=== PATIENT | male | born 1950 | race Two or more races ===

== ENCOUNTER 2016-09-22 05:22 | Emergency (ER) | payer MEDICAID ==
[~2016-09-22] VITALS: Ht 175.3 cm; Wt 81.6 kg
[2016-09-22 05:36] VITALS: BP 126/71
== END 2016-09-22 05:50 | disposition home or self-care (01) ==
LOC: ER 05:26
DX: T20.45XA Corrosion of unspecified degree of scalp [any part], initial encounter (principal); Y92.89 Other specified places as the place of occurrence of the external cause; Y93.89 Activity, other specified; Y99.8 Other external cause status
CPT/HCPCS: A4606; Z7502; Z7610

== ENCOUNTER 2018-01-15 18:59 | Emergency (ER) | payer MEDICARE, MEDICAID ==
[~2018-01-15] VITALS: Ht 165.1 cm; Wt 77.1 kg
--- NOTE | 2018-01-15 18:59 | NUR ---
BB FAMILY; LEFT BACK/ LEFT LEG PAIN X 3 WEEKS. VSS NAD A/OX4 SKIN WARM AND WNL. WILL CONTINUE TO MONITOR FOR ANY CHANGES
--- NOTE | 2018-01-15 19:05 | NUR ---
PA AT BEDSIDE FOR EVAL
--- NOTE | 2018-01-15 19:22 | NUR ---
PT OFF TO CT
[2018-01-15] MEDS ORDERED: ACETAMINOPHEN 325 MG TABLET PO ONE (19:30)
[2018-01-15] MEDS ORDERED: NAPROXEN 250 MG TABLET PO ONE (19:30)
[2018-01-15] MEDS ORDERED: NAPROXEN 250 MG TABLET ONE (19:32)
--- NOTE | 2018-01-15 19:49 | NUR ---
PT BACK FROM CT
--- NOTE | 2018-01-15 19:53 | NUR ---
PT COMFORTABLE IN BED
[2018-01-15 20:56] VITALS: BP 151/91
== END 2018-01-15 20:57 | disposition home or self-care (01) ==
LOC: ER 19:00
DX: M25.552 Pain in left hip (principal); M79.662 Pain in left lower leg; W11.XXXA Fall on and from ladder, initial encounter; Y93.89 Activity, other specified; Y92.098 Other place in other non-institutional residence as the place of occurrence of the external cause; Y99.8 Other external cause status
CPT/HCPCS: 72100-TC; 73502; A4606; Z7610

== ENCOUNTER 2019-01-13 19:57 | Emergency (ER) | payer MEDICARE, MEDICAID ==
[~2019-01-13] VITALS: Ht 167.6 cm; Wt 75.3 kg
[2019-01-13 20:08] VITALS: BP 168/107
[2019-01-13] MEDS ORDERED: LIDOCAINE 1%-EPI 1:100,000 20 ML VIAL ONE (21:00)
== END 2019-01-13 22:20 | disposition home or self-care (01) ==
LOC: ER 19:57
DX: S61.411A Laceration without foreign body of right hand, initial encounter (principal); W25.XXXA Contact with sharp glass, initial encounter; Y93.89 Activity, other specified; Y92.89 Other specified places as the place of occurrence of the external cause; Y99.8 Other external cause status
CPT/HCPCS: 12001; 73120; 99283; J3490

== ENCOUNTER 2019-01-20 19:43 | Emergency (ER) | payer MEDICARE, MEDICAID ==
[~2019-01-20] VITALS: Ht 165.1 cm; Wt 68.0 kg
[2019-01-20 20:08] VITALS: BP 147/88
== END 2019-01-20 20:50 | disposition home or self-care (01) ==
LOC: ER 19:47
DX: S61.411D Laceration without foreign body of right hand, subsequent encounter (principal); X58.XXXD Exposure to other specified factors, subsequent encounter

== ENCOUNTER 2022-08-13 15:31 | Emergency (ER) | payer MEDICARE, OTHER ==
[~2022-08-13] VITALS: Ht 167.6 cm; Wt 74.8 kg
[2022-08-13 17:20] VITALS: BP 163/108
[2022-08-13] MEDS ORDERED: IBUPROFEN 600 MG TABLET ONE (18:14)
[2022-08-13] MEDS: IBUPROFEN 600 MG TABLET PO ONE (18:15)
--- NOTE | 2022-08-13 18:16 | NUR ---
COVID, FLU AND THROT CULTURE SWAB DONE AND SENT TO LAB.
--- NOTE | 2022-08-13 18:20 | NUR ---
Patient discharged to home in stable condition. Written and verbal after care instructions given. Patient verbalizes understanding of instruction.
== END 2022-08-13 18:20 | disposition home or self-care (01) ==
LOC: ER 15:31
DX: J02.9 Acute pharyngitis, unspecified (principal); Z20.822 Contact with and (suspected) exposure to COVID-19
CPT/HCPCS: 99283; 87426; 87081; C9803

== ENCOUNTER 2025-06-27 11:45 | Emergency (ER) | payer MEDICARE, MEDICAID ==
[~2025-06-27] VITALS: Ht 165.1 cm; Wt 79.4 kg
[2025-06-27 12:14] LABS: APPEARANCE,URINE CLEAR (CLEAR); BLOOD, URINE Trace-intact Ery/uL (NEGATIVE); LEUKOCYTE ESTERASE ,URINE Negative (NEGATIVE); NITRITE, URINE NEGATIVE (NEGATIVE); UGLUCOSE Negative (NEGATIVE)
[2025-06-27 12:16] LABS: ADD URINE CULTURE NO; SQUAMOUS EPITHELIAL CELL,UR None Seen /HPF (None Seen)
[2025-06-27 12:21] LABS: PLATELET COUNT (AUTO) 194 K/uL (150-450); RED BLOOD CELL COUNT(AUTO) 4.91 MIL/uL (4.5-6.0); RED CELL DISTRIBUTION WIDTH 13.5 % (11.5-15.0); WHITE BLOOD COUNT (AUTO) 5.7 K/uL (4.3-11.0)
[2025-06-27 12:28] LABS: CALCIUM, SERUM 8.9 mg/dL (8.5-10.1); CREATININE 0.8 mg/dL (0.6-1.3); SODIUM SERUM 142 mmol/L (136-145); UREA NITROGEN, BLOOD 17 mg/dL (7-18)
[2025-06-27 12:33] LABS: ASPARTATE AMINOTRANSFERASE 35 U/L (15-37); TOTAL PROTEIN, SERUM 7.5 g/dL (6.4-8.2)
[2025-06-27 13:15] VITALS: BP 138/83; TEMP 98.3; O2SAT 98
== END 2025-06-27 13:15 | disposition home or self-care (01) ==
LOC: ER 11:50
DX: R10.84 Generalized abdominal pain (principal)
CPT/HCPCS: 36415; 80048-TC; 80076-TC; 81001; 83690-TC; 85025-TC